=== PATIENT | male | born 1990 | race African-American/Black ===

== ENCOUNTER 2017-06-28 22:17 | Emergency (ER) | payer OTHER ==
[~2017-06-28 22:17] MED LIST: CYCLOBENZAPRINE10 M1 PO; IBUPROFEN600 M1 PO
--- NOTE | 2017-06-28 22:36 | ED UPPER/LOWER EXTREMITY COMPL ---
History of Present Illness General Chief Complaint: Lower Extremity Problems Stated Complaint: BIBA BILATERAL ANKLE SWELLING Source: patient, EMS Exam Limitations: no limitations Vital Signs & Intake/Output Vital Signs & Intake/Output Vital Signs Date Time Temp Pulse Resp B/P B/P Pulse O2 O2 Flow FiO2 Mean Ox Delivery Rate 06/29 0010 98 Room Air 06/29 0007 97.8 89 18 106/71 98 Room Air 06/28 2234 98.0 88 18 108/74 98 Room Air Allergies Coded Allergies: No Known Allergies (06/19/17) Reconcile Medications Cyclobenzaprine HCl 10 MG TABLET 1 TAB PO TID PRN muscle strain Furosemide (Lasix) 20 MG TABLET 1 TAB PO DAILY leg swelling Ibuprofen 600 MG TABLET 1 TAB PO Q6PRN PRN pain with food Triage Note: 26M BIBA AFTER NOTICING SWOLLEN ANKLES WHILE SITTING ON THE COUCH Debbie ALCALA>Beverly. DR ROWE TO TRIAGE TO DISCUSS TEST OPTIONS AND RECOMMENDATION FOR U/S TOMORROW. HX CHOLESTEROL ONLY. DENIES CP/SOB. REPORTS HE DID NOT EAT ANYTHING TOO SALTY TODAY. DENIES DYSURIA. DENIES PAIN. AAOX4. AFEBRILE Triage Nurses Notes Reviewed? yes Onset: Gradual Duration: minute(s): Timing: single episode today Severity: mild Pain/Injury Location: Bilateral: Ankle. Method of Injury: unknown No Modifying Factors: none Associated Symptoms: swelling HPI: 26 yo gentleman presents with bilateral ankle swelling which he noted approximately 20 minutes ago. He is uncertain of etiology. He has had no recent surgeries. He has not been especially sedentary. He has no fever, chills, dyspnea, shortness of breath, syncopal symptoms. He has no lower extremity pain. He is otherwise well. Past History Travel History Traveled to [place] past 21 day No Medical History Any Pertinent Medical History? see below for history Neurological: NONE EENT: NONE Cardiovascular: hyperlipidemia Respiratory: NONE Gastrointestinal: NONE Hepatic: NONE Renal: NONE Musculoskeletal: NONE Psychiatric: NONE Endocrine: NONE Blood Disorders: NONE Cancer(s): NONE THERAPY TECHNICIAN/Reproductive: NONE Surgical History Surgical History: non-contributory Psychosocial History What is your primary language Serbian Tobacco Use: Current Daily Use Daily Tobacco Use Amount/Type: => 5 Cigarettes daily Family History Hx Contributory? No Review of Systems Review of Systems Constitutional: Reports: no symptoms. EENTM: Reports: no symptoms. Respiratory: Reports: no symptoms. Cardiovascular: Reports: no symptoms. Gastrointestinal/Abdominal: Reports: no symptoms. Genitourinary: Reports: no symptoms. Musculoskeletal: Reports: no symptoms. Skin: Reports: no symptoms. Neurological/Psychological: Reports: no symptoms. Hematologic/Endocrine: Reports: no symptoms. Immunological: Reports: no symptoms. All Other Systems: Reviewed and Negative Physical Exam Physical Exam General Appearance: well developed/nourished, mild distress Head: atraumatic Ears, Nose, Throat: normal pharynx, normal ENT inspection Neck: normal inspection, supple, full range of motion Cardiovascular/Respiratory: normal breath sounds, normal peripheral pulses, regular rate/rhythm, no respiratory distress Gastrointestinal: organmegaly Neurologic/Tendon: normal sensation, normal motor functions, normal tendon functions Skin: intact, normal color, warm/dry Comments: bilateral ankles with 1-2 + non pitting edema. no pretibial edema. left ankle is slightly more edematous than the right. No erythema, joint pain, tenderness, lymphangitic streaking. Progress Differential Diagnosis: edema vs other. Plan of Care: Orders Procedure Date/time Status COMPREHENSIVE METABOLIC PANEL 06/28 2229 Complete CBC WITHOUT DIFFERENTIAL 06/28 2229 Complete Laboratory Tests 06/28/17 2241: Anion Gap 10, Estimated GFR > 60, BUN/Creatinine Ratio 24.4, Glucose 85, Calcium 9.5, Total Bilirubin 0.6, AST 24, ALT 29, Alkaline Phosphatase 76, Total Protein 7.3, Albumin 4.2, Globulin 3.1, Albumin/Globulin Ratio 1.4, CBC w Diff NO MAN DIFF REQ, RBC 5.14, MCV 80.4, MCH 26.1 L, MCHC 32.4 L, RDW 14.0, MPV 8.1, Gran % 50.5, Lymphocytes % 35.2, Monocytes % 7.5, Eosinophils % 6.1 H, Basophils % 0.7, Absolute Granulocytes 2.8, Absolute Lymphocytes 2.0, Absolute Monocytes 0.4 , Absolute Eosinophils 0.3, Absolute Basophils 0 Departure Departure Disposition: HOME OR SELF CARE Condition: Stable Clinical Impression Primary Impression: Edema Referrals: Jael Sullivan MD (PCP/Family) Departure Forms: Customer Survey General Discharge Information Prescriptions: Current Visit Scripts Furosemide (Lasix) 1 TAB PO DAILY #3 TAB Comments wells score is zero... pt referred for u/s in AM. labs drawn to assess renal function and electrolytes. no signs or symptoms of chf. wrote rx for lasix 20mg qday x 3... encouraged close follow up with pmd.
[2017-06-28] MEDS ORDERED: LASIX20 M1 PO (22:37)
[2017-06-28 22:49] LABS: ABSOLUTE BASOPHIL COUNT 0 /CUMM (0.0-0.2); ABSOLUTE EOSINOPHIL COUNT 0.3 /CUMM (0.0-0.7); ABSOLUTE GRANULOCYTE CT 2.8 /CUMM (1.4-6.5); ABSOLUTE MONOCYTE COUNT 0.4 /CUMM (0.10-0.60); BASOPHIL % 0.7 % (0.0-2.0); EOSINOPHIL % 6.1 % (0-5); GRANULOCYTE % 50.5 % (42.2-75.2); HEMATOCRIT 41.3 % (42-52); MEAN CORPUSCULAR HGB 26.1 PG (27.0-31.0); MEAN CORPUSCULAR HGB CONC 32.4 G/DL (33.0-37.0); MEAN CORPUSCULAR VOLUME 80.4 FL (80.0-94.0); MEAN PLATELET VOLUME 8.1 FL (7.4-10.4); PLATELET COUNT 204 /CUMM (130-400); RED BLOOD CELL CT 5.14 /CUMM (4.70-6.10); WHITE BLOOD CELL COUNT 5.6 /CUMM (4.8-10.8)
[2017-06-29 00:07] VITALS: BP 106/71
== END 2017-06-29 00:13 ==
LOC: ERH 22:17
PROVIDERS: Pediatrics
DX: R60.9 Edema, unspecified (principal)

== ENCOUNTER 2017-09-01 10:00 | Emergency (ER) | payer OTHER ==
[~2017-09-01] VITALS: Ht 167.6 cm; Wt 79.4 kg
[~2017-09-01 10:00] MED LIST changes: +AUGMENTIN 875-1 EACH PO; +LASIX20 M1 PO; +PREDNISONE10 M2 PO
[2017-09-01 11:05] LABS: ABSOLUTE BASOPHIL COUNT 0 /CUMM (0.0-0.2); ABSOLUTE EOSINOPHIL COUNT 0.1 /CUMM (0.0-0.7); ABSOLUTE GRANULOCYTE CT 3.8 /CUMM (1.4-6.5); ABSOLUTE LYMPH COUNT 0.9 /CUMM (1.2-3.4); ABSOLUTE MONOCYTE COUNT 0.5 /CUMM (0.10-0.60); BASOPHIL % 0 % (0.0-2.0); EOSINOPHIL % 2.1 % (0-5); GRANULOCYTE % 71.4 % (42.2-75.2); HEMATOCRIT 47.4 % (42-52); MEAN CORPUSCULAR HGB 26.2 PG (27.0-31.0); MEAN CORPUSCULAR HGB CONC 32.8 G/DL (33.0-37.0); MEAN CORPUSCULAR VOLUME 79.8 FL (80.0-94.0); MEAN PLATELET VOLUME 8.4 FL (7.4-10.4); PLATELET COUNT 207 /CUMM (130-400); RBC DISTRIBUTION WIDTH 12.8 % (11.5-14.5); RED BLOOD CELL CT 5.94 /CUMM (4.70-6.10); WHITE BLOOD CELL COUNT 5.3 /CUMM (4.8-10.8)
--- NOTE | 2017-09-01 12:11 | ED GENERAL ADULT ---
History of Present Illness General Chief Complaint: Abdominal Pain/Flank Pain Stated Complaint: ABDOMINAL PAIN X 4 DAYS Source: patient Exam Limitations: no limitations Vital Signs & Intake/Output Vital Signs & Intake/Output Vital Signs Date Time Temp Pulse Resp B/P B/P Pulse O2 O2 Flow FiO2 Mean Ox Delivery Rate 09/01 1438 97.0 70 20 130/80 98 Room Air 09/01 1235 97.3 68 20 133/82 98 Room Air 09/01 1059 96.8 71 18 133/97 99 Room Air Room Air Allergies Coded Allergies: No Known Allergies (06/19/17) Reconcile Medications Amoxicillin/Potassium Clav (Augmentin 875-125 Tablet) 875 MG-125 MG TABLET 1 TAB PO BID sinusitis Prednisone 10 MG TABLET 1 TAB PO DAILY sinusitis 3 tabs po x 3 days, 2 tabs po x 3 days, 1 tab po x 3 days Triage Note: PT TO ED WITH C/O DIFFUSE LOWER ABD PAIN AND NAUSEA AND VOMITING, DENIES DIARRHEA. HX IBS "I'M UNABLE TO TAKE MY ANXIETY MEDICINE XANAX, I'M AFRAID I WILL THROW IT UP". Triage Nurses Notes Reviewed? yes Onset: Abrupt Duration: day(s): Timing: recent history HPI: 09/01/17 12:19 PM This is a 26-year-old man who presents to the emergency department complaining of lower abdominal pain and vomiting. Patient states she's had lower abdominal pain for the past several days. He's had multiple episodes of vomiting. No diarrhea. He says that he has a history of irritable bowel syndrome. He also has severe anxiety has been unable to take his anti-anxiety medications. He denies fever. He denies any significant surgical history. Kc score is low risk. He has anorexia and nausea and vomiting. No migratory right lower quadrant pain. No right lower quadrant tenderness, no right lower quadrant rebound pain, he is afebrile. His white blood cell count is normal and there is no left shift. His score is 2 Past History Travel History Traveled to [place] past 21 day No Medical History Any Pertinent Medical History? see below for history Neurological: NONE EENT: NONE Cardiovascular: hyperlipidemia Respiratory: NONE Gastrointestinal: irritable bowel syndrome Hepatic: NONE Renal: NONE Musculoskeletal: NONE Psychiatric: NONE Endocrine: NONE Blood Disorders: NONE Cancer(s): NONE BUSINESS DATA ANALYST/Reproductive: NONE Surgical History Surgical History: non-contributory Psychosocial History What is your primary language Lao Tobacco Use: Current Daily Use Daily Tobacco Use Amount/Type: => 5 Cigarettes daily ETOH Use: occasional use Illicit Drug Use: marijuana Family History Hx Contributory? No Review of Systems Review of Systems Constitutional: Denies: fever. EENTM: Denies: visual changes. Respiratory: Denies: short of breath. Cardiovascular: Denies: chest pain. GI: Reports: abdominal pain, nausea, vomiting. Genitourinary: Reports: no symptoms. Musculoskeletal: Reports: no symptoms. Skin: Denies: rash. Neurological/Psychological: Reports: no symptoms. Hematologic/Endocrine: Reports: no symptoms. Immunologic/Allergic: Reports: no symptoms. Physical Exam Physical Exam General Appearance: alert, awake, anxious, mild distress Head: atraumatic, normal appearance Eyes: Bilateral: normal appearance, PERRL, EOMI. Ears, Nose, Throat: normal pharynx, normal ENT inspection Neck: normal inspection, supple Respiratory: normal breath sounds, chest non-tender, no respiratory distress Cardiovascular: regular rate/rhythm Peripheral Pulses: 4+ radial (R), 4+ radial (L) Gastrointestinal: soft, non-tender Back: normal range of motion Extremities: normal range of motion Neurologic/Psych: awake, alert, oriented x 3 Skin: intact, normal color, warm/dry Core Measures ACS in differential dx? No CVA/TIA Diagnosis: No Sepsis Present: No Sepsis Focused Exam Completed? No Progress Differential Diagnoses I considered the following diagnoses in my evaluation of the patient: [ Appendicitis, irritable bowel syndrome, viral syndrome, THC hyper emesis syndrome, cyclic vomiting syndrome,] Plan of Care: Orders Procedure Date/time Status COMPREHENSIVE METABOLIC PANEL 09/01 1016 Complete CBC WITHOUT DIFFERENTIAL 09/01 1016 Complete Laboratory Tests 09/01/17 1052: Anion Gap 12, Estimated GFR > 60, BUN/Creatinine Ratio 15.0, Glucose 93, Calcium 10.0, Total Bilirubin 1.1, AST 32, ALT 40, Alkaline Phosphatase 104, Total Protein 8.5 H, Albumin 4.9, Globulin 3.6, Albumin/Globulin Ratio 1.4, CBC w Diff NO MAN DIFF REQ, RBC 5.94, MCV 79.8 L, MCH 26.2 L, MCHC 32.8 L, RDW 12.8 , MPV 8.4, Gran % 71.4, Lymphocytes % 16.6 L, Monocytes % 9.9 H, Eosinophils % 2.1, Basophils % 0, Absolute Granulocytes 3.8, Absolute Lymphocytes 0.9 L, Absolute Monocytes 0.5, Absolute Eosinophils 0.1, Absolute Basophils 0 09/01/17 1016: Urine Test Cancelled Initial ED EKG: none Departure Departure Disposition: STILL A PATIENT Condition: Stable Clinical Impression Primary Impression: Abdominal pain Secondary Impressions: Vomiting Referrals: Jael Sullivan MD (PCP/Family) Departure Forms: Customer Survey General Discharge Information Comments The patient has no abdominal pain or tenderness in the Emergency Department. No active vomiting. Ativan and Zofran were given by mouth. We'll see if he can tolerate by mouth fluids. His labs are unremarkable and his Kc score is low risk. He likely has an exacerbation of irritable bowel syndrome Critical Care Note Critical Care Note Critical Care Time: non-applicable The patient has no abdominal pain or tenderness in the Emergency Department. No active vomiting. Ativan and Zofran were given by mouth. We'll see if he can tolerate by mouth fluids. His labs are unremarkable and his Kc score is low risk. He likely has an exacerbation of irritable bowel syndrome Critical Care Note Critical Care Note Critical Care Time: non-applicable
[2017-09-01 14:38] VITALS: BP 130/80
== END 2017-09-01 14:39 ==
LOC: ERH 10:00
PROVIDERS: Emergency Medicine
DX: R10.30 Lower abdominal pain, unspecified (principal); R11.10 Vomiting, unspecified; R11.0 Nausea
CPT/HCPCS: 81025; J3101